=== PATIENT | female | born 1970 | race African-American/Black ===

== ENCOUNTER 2017-04-20 08:41 | Emergency (ER) | payer BC ==
[~2017-04-20 08:41] MED LIST: RESTORIL15 MG PO; SYNTHROID25 MCG PO
[2017-04-20] MEDS ORDERED: AMBIEN10 MG PO (15:54)
[2017-04-20 15:58] VITALS: BP 115/79
--- NOTE | 2017-04-20 16:00 | NUR ---
1550-INSTILLED 750ML WARM TAP WATER WITH 2 PACKETS OF CASTILE DOAP. HELD FOR 10 MINUTES AND UP TO TOILET TO EXPELL.
--- NOTE | 2017-04-20 16:21 | NUR ---
1415-NOTED LARGE BOWEL MOVEMENT IN TOILET WITH FRESH RED BLOOD, PT. STATES IS FROM HEMORRHOIDS. OFFERED WATER TO DRINK. ADDIDTIONAL 750MG WARM WATER WITH CASTILE SOAP PACKETS INSTILLED.
--- NOTE | 2017-04-20 18:17 | NUR ---
PT REFUSED ANYMORE ENEMA DUE TO HEMORRHOIDS HURTING TO BAD, HEMORRHOIDS BLEEDING
== END 2017-04-20 10:36 | disposition home or self-care (01) ==
LOC: D.ER 08:41
DX: K59.00 Constipation, unspecified (principal)

== ENCOUNTER 2017-04-20 15:05 | Outpatient (CLI) | payer BC ==
[2013-08-14 13:38] VITALS: BMI 23.8
[2017-04-20] MEDS ORDERED: AMBIEN10 MG PO (15:54)
--- NOTE | 2017-04-20 16:27 | NUR ---
REPORT RECEIVED FROM TOMI FLORES. PT WITH 2ND SOAP SUDS ENEMA, RETAINED AT THIS TIME. WILL MONITOR.
--- NOTE | 2017-04-20 16:57 | NUR ---
1649- PT MOVED SOME BOWELS, REPORTS FEELING RELEIF FROM UPPER GASTRIC BLOATING. WANTS TO TRY TO MOVE BOWEL AGAIN BEFORE INSTILLING NEXT ENEMA. NANCY RED BLOOD IN TOILET WELL, FROM INTERNAL AND EXTERNAL HEMMORHOIDS. PT STATES THAT THIS IS "NORMAL" WHEN SHE GETS CONSTIPATED.
--- NOTE | 2017-04-20 17:04 | NUR ---
REPORT GIVEN TO Jackson ZAVALA RN.
== END 2017-04-20 18:00 | disposition home or self-care (01) ==
LOC: D.OPS 15:05
DX: K59.00 Constipation, unspecified (principal)